=== PATIENT | male | born 1975 | race Two or more races ===

== ENCOUNTER 2017-03-22 15:57 | Inpatient (IN) | payer OTHER ==
[2017-03-22 18:12] VITALS: BMI 25.8
--- NOTE | 2017-03-22 20:29 | HP ---
COWS - Scale Resting Pulse: 1= [place] 81-100 Sweatin=Flushed/Facial Moisture Restless Observation: 1= Difficult to Sit Still Pupil Size: 1= Pupils >than Normal Bone or Joint Aches: 4=Acute Joint/Muscle Pain Runny Nose/ Eye Tearin= None GI Upset > 30mins: 3= Vomiting/Diarrhea Tremor Observation: 4= Gross Tremor/Twitching Yawning Observation: 0= None Anxiety or Irritability: 4=Extreme Anxiety Goose Flesh Skin: 0=Smooth Skin COWS Score: 20 Admission ROS S - HPI Chief Complaint: C/O WITHDRAWAL SX'S FROM OPIOID WITHDRAWAL. SEEKING DETOX. Allergies/Adverse Reactions: Allergies Allergy/AdvReac Type Severity Reaction Status Date / Time No Known Allergies Allergy Verified 03/22/17 20:22 History of Present Illness: 41 Y.O. MALE WITH LONG HX/O OF OPIOID DEPENDENCE ADMITTED FOR DETOX. THIS IS CLIENT FIRST TIME IN A DRUG TXMENT PROGRAM. REFERRED BY HIS PAROL OFFICER. DENIES ANY SIGNIFICANT PERIOD OF CLEAN TIME. Exam Limitations: No Limitations - Ebola screening Have you traveled outside of the country in the last 21 days: No Have you had contact with anyone from an Ebola affected area: No Have you been sick,other than usual withdrawal symptoms: No Do you have a fever: No - Review of Systems Constitutional: Chills, Loss of Appetite, Malaise, Night Sweats, Unintentional Wgt. Loss EENT: reports: Other (RUNNY NOSE WATERY EYES) Respiratory: reports: No Symptoms reported Cardiac: reports: No Symptoms Reported GI: reports: Nausea, Poor Appetite, Poor Fluid Intake, Vomiting, Abdominal cramping : reports: No Symptoms Reported Musculoskeletal: reports: No Symptoms Reported Integumentary: reports: No Symptoms Reported Neuro: reports: Headache Endocrine: reports: No Symptoms Reported Hematology: reports: No Symptoms Reported Psychiatric: reports: Anxious, Depressed (DENIES SI/HI) Other Systems: Reviewed and Negative Patient History - Patient Medical History Hx Anemia: No Hx Asthma: Yes (ALBUTEROL) Hx Chronic Obstructive Pulmonary Disease (COPD): No Hx Cancer: No Hx Cardiac Disorders: No Hx Congestive Heart Failure: No Hx Hypertension: No Hx Hypercholesterolemia: No Hx Pacemaker: No HX Cerebrovascular Accident: No Hx Seizures: No Hx Dementia: No Hx Diabetes: No Hx Gastrointestinal Disorders: No Hx Liver Disease: No Hx Genitourinary Disorders: Yes (GERD/ PRILOSEC) Hx Sexually Transmitted Disorders: No Hx Renal Disease (ESRD): No (HX/O KIDNEY STONES) Hx Thyroid Disease: No Hx Human Immunodeficiency Virus (HIV): No Hx Hepatitis C: No Hx Depression: Yes Hx Suicide Attempt: No Hx Bipolar Disorder: Yes Hx Schizophrenia: Yes Other Medical History: OCD - Patient Surgical History Past Surgical History: Yes Other Surgical History: KIDNEY STONES REMOVED Anesthesia Reaction: No - PPD History Previous Implant?: Yes Documented Results: Negative w/o proof Implanted On Prior R Admission?: No PPD to be Administered?: Yes - Smoking Cessation Smoking history: Current every day smoker Have you smoked in the past 12 months: Yes Aproximately how many cigarettes per day: 20 Cigars Per Day: 0 Hx Chewing Tobacco Use: No Initiated information on smoking cessation: Yes 'Breaking Loose' booklet given: 03/22/17 - Substance & Tx. History Hx Alcohol Use: No Hx Substance Use: Yes Substance Use Type: Cocaine, Heroin, Opiates (OXY) Hx Substance Use Treatment: No - Substances Abused HEROIN Route: Inhalation Frequency: Daily Amount used: 10 BAGS Age of first use: 13 Date of Last Use: 03/22/17 COCAINE Route: Inhalation Frequency: Daily Amount used: 2GMS Age of first use: 16 Date of Last Use: 03/22/17 OXYCODONE Route: Oral Frequency: Daily Amount used: 75MG Age of first use: 16 Date of Last Use: 03/21/17 Family Disease History - Family Disease History Family History: Denies Admission Physical Exam [facility] - Vital Signs Vital Signs: Vital Signs - 24 hr 03/22/17 18:08 Temperature 97.7 F Pulse Rate 83 Respiratory 18 Rate Blood Pressure 112/75 - Physical General Appearance: Yes: Appropriately Dressed, Moderate Distress, Tremorous, Irritable, Sweating, Anxious HEENTM: Yes: EOMI, Normocephalic, Normal Voice, OZZY, Pharynx Normal, Nasal Congestion, Rhinorrhea Respiratory: Yes: Chest Non-Tender, Lungs Clear, Normal Breath Sounds, No Respiratory Distress, No Accessory Muscle Use Neck: Yes: No masses,lesions,Nodules, Supple, Trachea in good position Breast: Yes: Breast Exam Deferred Cardiology: Yes: Regular Rhythm, Regular Rate, S1, S2 Abdominal: Yes: Normal Bowel Sounds, Non Tender, Flat, Soft Genitourinary: Yes: Within Normal Limits Back: Yes: Normal Inspection Musculoskeletal: Yes: full range of Motion, Gait Steady Extremities: Yes: Normal Range of Motion, Non-Tender, Tremors Neurological: Yes: combatant swimmer II-XII NML intact, Fully Oriented, Alert, Motor Strength 5/5 Integumentary: Yes: Normal Color, Dry, Warm Lymphatic: Yes: Within Normal Limits - Diagnostic (1) Opioid dependence with withdrawal Current Visit: Yes Status: Chronic (2) Cocaine dependence, uncomplicated Current Visit: Yes Status: Chronic (3) Asthma Current Visit: Yes Status: Chronic Qualifiers: Asthma severity: mild Asthma persistence: intermittent Asthma complication type: unspecified Qualified Code(s): J45.20 - Mild intermittent asthma, uncomplicated (4) GERD (gastroesophageal reflux disease) Current Visit: Yes Status: Chronic Qualifiers: Esophagitis presence: esophagitis presence not specified Qualified Code(s) : K21.9 - Gastro-esophageal reflux disease without esophagitis (5) Nicotine dependence Current Visit: Yes Status: Chronic Qualifiers: Nicotine product type: cigarettes Substance use status: uncomplicated Qualified Code(s): F17.210 - Nicotine dependence, cigarettes, uncomplicated Cleared for Admission [facility] - Detox or Rehab [facility] Level of Care: Medically Managed Detox Regimen/Protocol: Methadone Claeared for Rehab Admission: No S Breath Alcohol Content Breath Alcohol Content: 0 Urine Drug Screen - Results Drug Screen Negative: No Urine Drug Screen Results: RICKY-Cocaine, OPI-Opiates, OXY-Oxycodone
[2017-03-22] MEDS ORDERED: METHADONE HCL 10 MG TABLET (FOR DETOX USE ONLY) PO ONE ×2 (20:39→23:00)
[2017-03-22] MEDS ORDERED: ACETAMINOPHEN 325 MG TABLET (FP) PO PRN (20:39)
[2017-03-22] MEDS ORDERED: IBUPROFEN 400 MG TABLET (FP) PO PRN (20:39)
[2017-03-22] MEDS ORDERED: MENTHOL/PHENOL 1 EACH UD MM PRN (20:39)
[2017-03-22] MEDS ORDERED: LOPERAMIDE HCL 2 MG CAPSULE PO PRN (20:39)
[2017-03-22] MEDS ORDERED: MAG HYDROX/AL HYDROX/SIMETH 30 ML UNIT-DOSE CUP PO PRN (20:39)
[2017-03-22] MEDS ORDERED: NICOTINE POLACRILEX 2 MG GUM BC PRN (20:39)
[2017-03-22] MEDS ORDERED: guaiFENesin/D-METHORPHAN HB 10 ML UNIT-DOSE CUPS PO PRN (20:39)
[2017-03-22] MEDS ORDERED: MAGNESIUM HYDROX 2400MG/30ML ORAL SUSPENSION 30 ML CUP PO PRN (20:39)
[2017-03-22] MEDS ORDERED: P-EPHED 60MG/TRIPROLIDI 2.5MG TABLET PO PRN (20:39)
[2017-03-22] MEDS ORDERED: MAGNESIUM CITRATE 300 ML BOTTLE PO PRN (20:39)
[2017-03-22] MEDS ORDERED: ALBUTEROL SO4 2.5/IPRATROPIUM 0.5 INH SOL 3 ML VIAL.NEB. NEB PRN (20:42)
[2017-03-22] MEDS: diazePAM 5 MG TABLET PO PRN (22:15)
[2017-03-22] MEDS: THIAMINE HCL 100 MG TABLET (FP) PO SCH (22:16)
[2017-03-23 00:54] LABS: URINE APPEARANCE SLCLOUDY; URINE BILIRUBIN NEGATIVE (NEGATIVE); URINE BLOOD 2+ (NEGATIVE); URINE COLOR YELLOW; URINE GLUCOSE (UA) NEGATIVE (NEGATIVE); URINE KETONE NEGATIVE (NEGATIVE); URINE NITRITE NEGATIVE (NEGATIVE); URINE PROTEIN NEGATIVE (NEGATIVE); URINE UROBILINOGEN NEGATIVE mg/dL (0.2-1.0)
[2017-03-23 00:55] LABS: URINE LEUK ESTERASE 2+ (NEGATIVE)
[2017-03-23 01:00] LABS: CALCIUM OXALATE CRYSTALS FEW /hpf (NONE SEEN); URINE MUCUS RARE
[2017-03-23] MEDS: diazePAM 5 MG TABLET PO PRN ×3 (09:33→22:10)
[2017-03-23] MEDS ORDERED: METHADONE HCL 10 MG TABLET (FOR DETOX USE ONLY) PO ONE (10:00)
[2017-03-23] MEDS: NICOTINE 21 MG/24 HOURS TOPICAL PATCH TD SCH (10:07)
[2017-03-23] MEDS: PRENATAL VITAMINS W/ FOLIC ACID TABLET (FP) PO SCH (10:07)
[2017-03-23] MEDS: PANTOPRAZOLE 20 MG TABLET (FP) PO SCH (10:07)
[2017-03-23 10:32] LABS: HEMATOCRIT 38.4 % (35.4-49); HEMOGLOBIN 12.3 GM/dL (11.7-16.9); MCH 28.2 pg (25.7-33.7); MEAN CELL VOLUME 88.1 fl (80-96); MEAN PLT VOLUME 6.9 fl (7.5-11.1); PLATELET COUNT 380 K/MM3 (134-434); RBC 4.36 M/mm3 (4.00-5.60); RDW 15.1 % (11.9-15.9); WHITE BLOOD COUNT 7.4 K/mm3 (4.0-10.0)
[2017-03-23 10:34] LABS: ALBUMIN 2.9 g/dl (3.4-5.0); ANION GAP 6 (8-16); BLOOD UREA NITROGEN 15 mg/dL (7-18); CHLORIDE 107 mmol/L (98-107); CO2 29 mmol/L (21-32); CREATININE 0.8 mg/dL (0.7-1.3); GLUCOSE,RANDOM 70 mg/dL (74-106); POTASSIUM 4.4 mmol/L (3.5-5.1); SGOT/AST 42 U/L (15-37); SGPT/ALT 80 U/L (12-78); SODIUM 142 mmol/L (136-145)
[2017-03-23 10:36] LABS: ALK PHOS 97 U/L (45-117); BILIRUBIN,TOTAL 0.2 mg/dL (0.2-1.0); TOT PROT 5.8 g/dl (6.4-8.2)
[2017-03-23] MEDS ORDERED: ONDANSETRON *ODT* 4 MG TABLET SL PRN (10:49)
--- NOTE | 2017-03-23 13:47 | CONSULT ---
[facility] Psychiatric Consult - Data Date of interview: 03/23/17 Admission source: [facility] Identifying data: First admission to [facility] for this 41 y/o male seeking detox treatment on for heroin and cocaine dependence.Patient is ,a father of one,domiciled,unemployed and supported on Public Assistance. Substance Abuse History: Confirmed by patient in this interview.Details appreciated in current [facility] report : Smoking history: Current every day smoker. Have you smoked in the past 12 months: Yes. Aproximately how many cigarettes per day: 20. Cigars Per Day: 0. Hx Chewing Tobacco Use: No. Initiated information on smoking cessation: Yes. 'Breaking Loose' booklet given: . - Substance & Tx. History. Hx Alcohol Use: No. Hx Substance Use: Yes. Substance Use Type: Cocaine, Heroin, Opiates (OXY). Hx Substance Use Treatment : No. - Substances Abused. HEROIN. Route: Inhalation. Frequency: Daily. Amount used: 10 BAGS. Age of first use: 13. Date of Last Use: 03/22/17. COCAINE. Route: Inhalation. Frequency: Daily. Amount used: 2GMS. Age of first use: 16. Date of Last Use: 03/22/17. OXYCODONE. Route: Oral. Frequency: Daily. Amount used: 75MG. Age of first use: 16. Date of Last Use: 03/21/17 Medical History: Bronchial asthma,GERD,lower back pain and history of nephrolithiasis (lithotripsy). Psychiatric History: Mr Wagner declares that his psychiatric issues had their onset during his incarceration (17 consecutive years in skilled nursing).Reportedly diagnosed with " Bipolar Disorder and Schizophrenia ".Has been on various psychotropics but his more recent medications are consistent with sertraline, olanzapine,venlafaxine and trazodone.Patient endorses adherence to OPD care.Currently followed at the [facility] in the [place].He admits to three suicide attempts (via hanging).Referred by his chief legal officer for this first detoxification treatment. Physical/Sexual Abuse/Trauma History: Patient declines to discuss this domain. Additional Comment: Urine Drug Screen Results: RICKY-Cocaine, OPI-Opiates, OXY- Oxycodone.Noted. Mental Status Exam - Mental Status Exam Alert and Oriented to: Time, Place, Person Cognitive Function: Good Patient Appearance: Well Groomed (covered with tattoos : neck,arms,forearms) Mood: Nervous, Withdrawn, Anxious Affect: Mood Congruent Patient Behavior: Appropriate (medication-seeking : inquisitive about benzodiazepines), Cooperative Speech Pattern: Clear, Appropriate Voice Loudness: Normal Thought Process: Goal Oriented Thought Disorder: Not Present Hallucinations: Denies Suicidal Ideation: Denies Homicidal Ideation: Denies Insight/Judgement: Poor Sleep: Fair Appetite: Good Muscle strength/Tone: Normal Gait/Station: Normal Psychiatric Findings - Problem List ([place] 1, 2,3) (1) Opioid dependence with withdrawal Status: Acute Comment: . (2) Cocaine dependence, uncomplicated Status: Acute Comment: . (3) Nicotine dependence Status: Chronic Qualifiers: Nicotine product type: cigarettes Substance use status: uncomplicated Qualified Code(s): F17.210 - Nicotine dependence, cigarettes, uncomplicated Comment: . (4) Substance induced mood disorder Status: Acute Comment: . (5) Bipolar disorder Status: Chronic Comment: Self-report.On medications.Followed at [facility]. (6) Schizoaffective disorder Status: Suspected Comment: .Suspected. - Initial Treatment Plan Initial Treatment Plan: Psychoeducation and support provided.Patient is made aware of the benefits of regular attendance / participation in group therapy sessions,community meetings and recreational activities on unit schedule.He promises to attend.Detoxification in progress.Medications reconciled : zyprexa 15 mg po hs + zoloft 100 mg po daily + trazodone 50 mg po hs.Effexor is dropped from the regimen (no clinical justification for concomitant utilization of THREE antidepressants).Side effects/benefits of each drug are discussed with patient.Informed of risk of priapism,suicidal ideation,sexual dysfunction, metabolic syndrome and cardiovascular adverse events.Mr Wagner reports a history of good tolerability to this regimen.Expressed his consent (verbal) for adherence to this plan of care.Observation.
--- NOTE | 2017-03-23 15:59 | EKG ---
Test Reason : Blood Pressure : / mmHG Vent. Rate : 089 BPM Atrial Rate : 089 BPM P-R Int : 134 ms QRS Dur : 084 ms QT Int : 368 ms P-R-T Axes : 073 055 044 degrees QTc Int : 447 ms NORMAL SINUS RHYTHM NORMAL ECG NO PREVIOUS ECGS AVAILABLE Confirmed by FAITH BARNETT, ABIMAEL ([id number]) on 03/23/2017 3:59:22 PM Referred By: Confirmed By:ABIMAEL CUEVAS MD
--- NOTE | 2017-03-23 16:29 | PN ---
BHS COWS - Scale Resting Pulse: 2= SC 101-120 Sweatin= Chills/Flushing Restless Observation: 3= Extraneous Movement Pupil Size: 0= Normal to Room Light Bone or Joint Aches: 2= Severe Diffuse Aches Runny Nose/ Eye Tearin= Runny Nose/Eyes GI Upset > 30mins: 2= Nausea/Diarrhea Tremor Observation of Outstretched Hands: 0= None Yawning Observation: 1= 1-2x During Session Anxiety or Irritability: 2=Irritable/Anxious Goose Flesh Skin: 0=Smooth Skin COWS Score: 15 BHS Progress Note (SOAP) Subjective: Chills, body ache, n/v (vomited once), sweating, interrupted sleep Objective: 03/23/17 16:27 Last Vital Signs Temp Pulse Resp BP Pulse Ox 98.8 F 109 H 20 104/68 03/23/17 14:08 03/23/17 14:08 03/23/17 14:08 03/23/17 14:08 Laboratory Tests 03/22/17 03/23/17 03/23/17 22:59 08:00 08:00 WBC 7.4 RBC 4.36 Hgb 12.3 Hct 38.4 MCV 88.1 MCH 28.2 MCHC 32.0 RDW 15.1 Plt Count 380 MPV 6.9 L Sodium 142 Potassium 4.4 Chloride 107 Carbon Dioxide 29 Anion Gap 6 L BUN 15 Creatinine 0.8 Creat Clearance w eGFR > 60 Random Glucose 70 L Calcium 8.0 L Total Bilirubin 0.2 AST 42 H ALT 80 H Alkaline Phosphatase 97 Total Protein 5.8 L Albumin 2.9 L Urine Color Yellow Urine Appearance Slcloudy Urine pH 5.0 Ur Specific [place] 1.021 Urine Protein Negative Urine Glucose (UA) Negative Urine Ketones Negative Urine Blood 2+ H Urine Nitrite Negative Urine Bilirubin Negative Urine Urobilinogen Negative Ur Leukocyte Esterase 2+ H Urine WBC (Auto) 49 Urine RBC (Auto) 122 Calcium Oxalate Crystal Few Urine Mucus Rare RPR Titer 03/23/17 08:00 WBC RBC Hgb Hct MCV MCH MCHC RDW Plt Count MPV Sodium Potassium Chloride Carbon Dioxide Anion Gap BUN Creatinine Creat Clearance w eGFR Random Glucose Calcium Total Bilirubin AST ALT Alkaline Phosphatase Total Protein Albumin Urine Color Urine Appearance Urine pH Ur Specific [place] Urine Protein Urine Glucose (UA) Urine Ketones Urine Blood Urine Nitrite Urine Bilirubin Urine Urobilinogen Ur Leukocyte Esterase Urine WBC (Auto) Urine RBC (Auto) Calcium Oxalate Crystal Urine Mucus RPR Titer Nonreactive Labs noted: abnormal UA Assessment: 03/23/17 16:27 Withdrawal symptoms Noted with abnormal UA Plan: Continue detox Abnormal UA: encouraged to drink lots of water, repeat UA
[2017-03-23] MEDS: OLANZapine 7.5 MG TABLET PO SCH (22:10)
[2017-03-23] MEDS: THIAMINE HCL 100 MG TABLET (FP) PO SCH (22:10)
[2017-03-24] MEDS: diazePAM 5 MG TABLET PO PRN ×4 (05:24→22:08)
[2017-03-24] MEDS ORDERED: METHADONE HCL 5 MG TABLET (FOR DETOX USE ONLY) PO ONE (10:00)
[2017-03-24] MEDS: PRENATAL VITAMINS W/ FOLIC ACID TABLET (FP) PO SCH (10:19)
[2017-03-24] MEDS: NICOTINE 21 MG/24 HOURS TOPICAL PATCH TD SCH (10:19)
[2017-03-24] MEDS: SERTRALINE HCL 50 MG TABLET (FP) PO SCH (10:19)
[2017-03-24] MEDS: PANTOPRAZOLE 20 MG TABLET (FP) PO SCH (10:20)
[2017-03-24] MEDS: THIAMINE HCL 100 MG TABLET (FP) PO SCH (22:09)
[2017-03-24] MEDS: OLANZapine 7.5 MG TABLET PO SCH (22:09)
--- NOTE | 2017-03-24 22:25 | PN ---
BHS COWS - Scale Resting Pulse: 1= [place] 81-100 Sweatin=Flushed/Facial Moisture Restless Observation: 1= Difficult to Sit Still Pupil Size: 0= Normal to Room Light Bone or Joint Aches: 1= Mild Discomfort Runny Nose/ Eye Tearin= Runny Nose/Eyes GI Upset > 30mins: 1= Stomach Cramp Tremor Observation of Outstretched Hands: 2= Slight Tremor Visible Yawning Observation: 0= None Anxiety or Irritability: 2=Irritable/Anxious Goose Flesh Skin: 0=Smooth Skin COWS Score: 12 S Progress Note (SOAP) Subjective: Diarrhea shakes Objective: 03/24/17 22:23 Laboratory Last Values WBC 7.4 K/mm3 (4.0-10.0) 03/23/17 08:00 RBC 4.36 M/mm3 (4.00-5.60) 03/23/17 08:00 Hgb 12.3 GM/dL (11.7-16.9) 03/23/17 08:00 Hct 38.4 % (35.4-49) 03/23/17 08:00 MCV 88.1 fl (80-96) 03/23/17 08:00 MCH 28.2 pg (25.7-33.7) 03/23/17 08:00 MCHC 32.0 g/dl (32.0-35.9) 03/23/17 08:00 RDW 15.1 % (11.9-15.9) 03/23/17 08:00 Plt Count 380 K/MM3 (134-434) 03/23/17 08:00 MPV 6.9 fl (7.5-11.1) L 03/23/17 08:00 Sodium 142 mmol/L (136-145) 03/23/17 08:00 Potassium 4.4 mmol/L (3.5-5.1) 03/23/17 08:00 Chloride 107 mmol/L (98-107) 03/23/17 08:00 Carbon Dioxide 29 mmol/L (21-32) 03/23/17 08:00 Anion Gap 6 (8-16) L 03/23/17 08:00 BUN 15 mg/dL (7-18) 03/23/17 08:00 Creatinine 0.8 mg/dL (0.7-1.3) 03/23/17 08:00 Creat Clearance w eGFR > 60 (>60) 03/23/17 08:00 Random Glucose 70 mg/dL (74-106) L 03/23/17 08:00 Calcium 8.0 mg/dL (8.5-10.1) L 03/23/17 08:00 Total Bilirubin 0.2 mg/dL (0.2-1.0) 03/23/17 08:00 AST 42 U/L (15-37) H 03/23/17 08:00 ALT 80 U/L (12-78) H 03/23/17 08:00 Alkaline Phosphatase 97 U/L (45-117) 03/23/17 08:00 Total Protein 5.8 g/dl (6.4-8.2) L 03/23/17 08:00 Albumin 2.9 g/dl (3.4-5.0) L 03/23/17 08:00 Urine Color Yellow 03/22/17 22:59 Urine Appearance Slcloudy 03/22/17 22:59 Urine pH 5.0 (5.0-8.0) 03/22/17 22:59 Ur Specific [place] 1.021 (1.001-1.035) 03/22/17 22:59 Urine Protein Negative (NEGATIVE) 03/22/17 22:59 Urine Glucose (UA) Negative (NEGATIVE) 03/22/17 22:59 Urine Ketones Negative (NEGATIVE) 03/22/17 22:59 Urine Blood 2+ (NEGATIVE) H 03/22/17 22:59 Urine Nitrite Negative (NEGATIVE) 03/22/17 22:59 Urine Bilirubin Negative (NEGATIVE) 03/22/17 22:59 Urine Urobilinogen Negative mg/dL (0.2-1.0) 03/22/17 22:59 Ur Leukocyte Esterase 2+ (NEGATIVE) H 03/22/17 22:59 Urine WBC (Auto) 49 /hpf (3-5) 03/22/17 22:59 Urine RBC (Auto) 122 /hpf (0-3) 03/22/17 22:59 Calcium Oxalate Crystal Few /hpf (NONE SEEN) 03/22/17 22:59 Urine Mucus Rare 03/22/17 22:59 RPR Titer Nonreactive (NONREACTIVE) 03/23/17 08:00 labs noted Assessment: 03/24/17 22:25 withdrawal sx Plan: continue detox
[2017-03-25] MEDS ORDERED: METHADONE HCL 5 MG TABLET (FOR DETOX USE ONLY) PO ONE (10:00)
[2017-03-25] MEDS: SERTRALINE HCL 50 MG TABLET (FP) PO SCH (10:20)
[2017-03-25] MEDS: PANTOPRAZOLE 20 MG TABLET (FP) PO SCH (10:20)
[2017-03-25] MEDS: NICOTINE 21 MG/24 HOURS TOPICAL PATCH TD SCH (10:20)
[2017-03-25] MEDS: PRENATAL VITAMINS W/ FOLIC ACID TABLET (FP) PO SCH (10:20)
[2017-03-25] MEDS: diazePAM 5 MG TABLET PO PRN (10:22)
--- NOTE | 2017-03-25 11:24 | PN ---
BHS Progress Note (SOAP) Subjective: sleeplessness sweats Thinks someone is going to hurt him Objective: 03/25/17 11:22 Alert, ambulating steadily Denies SI/HI Vital Signs Temperature 98.8 F 03/25/17 09:52 Pulse Rate 110 H 03/25/17 09:52 Respiratory Rate 18 03/25/17 09:52 Blood Pressure 114/70 03/25/17 09:52 O2 Sat by Pulse Oximetry (%) Assessment: 03/25/17 11:23 withdrawal sx Plan: continue detox increase hydration psych consult
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
[2017-03-25 14:28] VITALS: BP 119/81; PULSE 108; TEMP 98.5
[2017-03-26] MEDS ORDERED: METHADONE HCL 10 MG TABLET (FOR DETOX USE ONLY) PO ONE (10:00)
[2017-03-27] MEDS ORDERED: METHADONE HCL 5 MG TABLET (FOR DETOX USE ONLY) PO ONE (06:00)
== END 2017-03-25 15:57 | DRG 773 ==
LOC: YASAS 15:57 → Y3N 18:46
PROVIDERS: ADMIT Internal Medicine; ATTEND Internal Medicine
PROC: HZ2ZZZZ Detoxification Services for Substance Abuse Treatment (ICD-10-PCS; principal; 2017-03-22)
DX: F11.23 Opioid dependence with withdrawal (principal); F14.20 Cocaine dependence, uncomplicated; F17.210 Nicotine dependence, cigarettes, uncomplicated; F20.0 Paranoid schizophrenia; F25.9 Schizoaffective disorder, unspecified; F19.24 Other psychoactive substance dependence with psychoactive substance-induced mood disorder; F31.9 Bipolar disorder, unspecified; K21.9 Gastro-esophageal reflux disease without esophagitis; J45.20 Mild intermittent asthma, uncomplicated; R82.90 Unspecified abnormal findings in urine; T14.91XA Suicide attempt, initial encounter; X83.8XXA Intentional self-harm by other specified means, initial encounter; Y93.9 Activity, unspecified; Y92.230 Patient room in hospital as the place of occurrence of the external cause
CPT/HCPCS: 36415; 80053; 81003; 81015; 85027; 86593; 93005; 93010